=== PATIENT | male | born 1970 | race Caucasian/White ===

== ENCOUNTER → 2021-01-29 14:15 | Outpatient (CLI) | payer BC, SELFPAY ==
--- NOTE | ~2021-01-29 | MR_ITS ---
EXAMINATION: MR hand LT wo con DATE: 01/29/2021 15:50 INDICATION: Acute rupture of the A4 aby at the left fourth digit post pulling injury one month viviane or. TECHNIQUE: Magnetic resonance imaging (MRI) of the left hand was performed without intravenous contra st centered about the fourth digit which excludes the carpus and proximal metacarpals. Sequences incl uded axial, sagittal and coronal T1-weighted FSE and T2-weighted FS FSE as well as 3-D MERGE. COMPARISON: None FINDINGS: There is marrow edema throughout the fourth middle phalanx surrounding a nondisplaced oblique extra a rticular fracture extending across the neck. There is some surrounding soft tissue edema. Alignment r emains essentially anatomic. No other fractures identified within otherwise normal marrow signal thro ughout. The visualized joint spaces appear normal. No erosions. The flexor and extensor tendons as we ll as the flexor hallucis longus tendon appears to remain intact throughout the digits and specifical ly in the fourth digit. The collateral ligament complexes at the metacarpophalangeal and interphalang eal joints are normal. The visualized distal interphalangeal musculature of the hand appears normal. IMPRESSION: 1. Nondisplaced extra articular fracture at the neck of the left fourth middle phalanx. Reviewed, dictated and finalized at location A.
== END ==
PROVIDERS: Visit Provider Plastic Surgery
DX: S62.643A Nondisplaced fracture of proximal phalanx of left middle finger, initial encounter for closed fracture (principal); X58.XXXA Exposure to other specified factors, initial encounter
CPT/HCPCS: 73218